=== PATIENT | female | born 1980 | race Caucasian/White ===

== ENCOUNTER 2018-02-01 08:03 | Emergency (ER) | payer OTHER ==
--- OUTSIDE RECORDS SUMMARY | 2018-02-01 08:07 | XMS REPORT ---
:1980 External Reference #:[id number] Author Organization [employer] Address [address] [place] [address] [place] [address] Phone [phone] Care Team Providers Name Role Phone Sara Mcdermott MD Primary Care Physician Unavailable Payers Type Date Identification Numbers Payment Provider Subscriber Commercial Policy Number: [id number] [employer] Brook Cortes PayID: [id number] [address] [place] [address] Problems Description No Information Family History Date Family Member(s) Problem(s) Comments General Sleep Apnea Maternal side Father Asthma Father Smoker Mother Snoring Mother Breast Cancer Mother Smoker Siblings 2 1 brother and 1 sister, brother has mild asthma Social History Type Date Description Comments Marital Status Significant Other Lives With Spouse Occupation [employer] Cigarette Use Never Smoked Cigarettes exposed to second hand as a child ETOH Use Rarely consumes alcohol Smoking Patient has never smoked Recreational Drug Use Denies Drug Use Daily Caffeine Consumes on average 1 cup of espresso a few times per regular coffee per day week Daily Caffeine Consumes on average 1 cup of hot tea per day Daily Caffeine Consumes on average 12oz of 1-2 per week soda per day Exercise Type/Frequency Exercises rarely Allergies, Adverse Reactions, Alerts Date Description Reaction Status Severity Comments 01/04/2018 NKDA active Medications Medication Date Status Form Strength Qnty SIG Indications Ordering Provider Nicole 0 Active Tablets 3-0.02mg 1 by mouth Unknown 000 every day Lexapro 0 Active Tablets 10mg 1 by mouth Unknown 000 every day Xyzal Allergy 0 Active Tablets 5mg 1 by mouth Unknown 24HR 000 every day Flonase Active Suspension 50mcg/Act spray 1 Unknown Allergy 000 spray in Relief each nostril prn Singulair Active Tablets 10mg 1 by mouth Unknown 000 every day Xanax 0 Active Tablets as needed Unknown 000 for anxiety Levsin 0 Active Tablets as needed Unknown 000 for IBS Lomotil Active Tablets prn for Unknown 000 IBS Vital Signs Date Vital Result Comment 01/04/2018 Height 66 inches 5'6" Weight 190.00 lb Heart Rate 68 /min BP Systolic Sitting 122 mmHg BP Diastolic Sitting 82 mmHg Respiratory Rate 14 /min O2 % BldC Oximetry 99 % BMI (Body Mass Index) 30.7 kg/m2 Neck Circumference in inches 14.75 Results Description No Information Procedures Description No Information Encounters Type Date Location Provider CPT E/M Dx Office Visit 01/04/2018 [facility] [address] R06.83 8:[facility] R53.83 J45.909 Plan of Care 01/04/2018 - Saida Stern, MDR06.83 SnoringNew Orders:Home Sleep TestingFollow up:[id number] Other [id number] Unspecified asthma, uncomplicated
[2018-02-01 08:12] VITALS: BP 122/80
--- NOTE | 2018-02-01 09:19 | UC ---
Respiratory Complaint HPI - HPI Summary HPI Summary: ONSET OF SORE THROAT AND PAIN WITH SWALLOWING LAST NIGHT. ALSO REPORTS SOME DRAINAGE, CONGESTION AND MILD COUGH. NO FEVER, NAUSEA/VOMITING. FLEW BACK FROM [place] OVER THE WEEKEND AND WONDERS IF SHE PICKED SOMETHING UP ON THE PLANE. - History of Current Complaint Chief Complaint: UCRespiratory Stated Complaint: SORE THROAT Time Seen by Provider: 02/01/18 09:07 Hx Obtained From: Patient Onset/Duration: Gradual Onset, Lasting Hours, Still Present Timing: Constant Severity Initially: Moderate Severity Currently: Moderate Pain Intensity: 8 Pain Scale Used: 0-10 Numeric Character: Cough: Nonproductive Aggravating Factors: Nothing Alleviating Factors: Nothing Associated Signs And Symptoms: Positive: URI, Nasal Congestion. Negative: Dyspnea, Fever, Wheezing - Allergies/Home Medications Allergies/Adverse Reactions: Allergies Allergy/AdvReac Type Severity Reaction Status Date / Time No Known Allergies Allergy Verified 02/01/18 08:12 Home Medications: Home Medications Albuterol HFA INHALER* [Ventolin HFA Inhaler*] 1 puff INH Q4H PRN 02/01/18 [ History Confirmed 02/01/18] Diphenoxylat/Atrop 2.5-0.025M* [Lomotil TAB*] 1 tab PO QID 02/01/18 [History Confirmed 02/01/18] Escitalopram Oxalate [Lexapro 10 mg] 10 mg PO DAILY 02/01/18 [History Confirmed 02/01/18] Ethinyl Estradiol/Drospirenone [Nicole 28 Tablet] 1 each PO 02/01/18 [History] Fluticasone NASAL SPRAY 50MCG* [Flonase NASAL SPRAY 50MCG*] 2 spray BOTH NARES DAILY 02/01/18 [History Confirmed 02/01/18] Hyoscyamine Sulfate [Levsin] 0.125 mg PO 02/01/18 [History] LevoCETirizine TAB (NF) [Xyzal TAB (NF)] 5 mg PO DAILY 02/01/18 [History Confirmed 02/01/18] Montelukast Sodium TAB* [Singulair 10 MG TAB*] 10 mg PO DAILY 02/01/18 [History Confirmed 02/01/18] PMH/Surg Hx/FS Hx/Imm Hx - Additional Past Medical History Additional PMH: ALLERGIES Other Cancer History: BASAL CELL - NOSE - Surgical History Surgical History: None - Family History Known Family History: Negative: Hypertension - Social History Alcohol Use: Occasionally Substance Use Type: None Smoking Status (MU): Never Smoked Tobacco Review of Systems Constitutional: Negative ENT: Sore Throat, Nasal Discharge Respiratory: Cough Cardiovascular: Negative Gastrointestinal: Negative All Other Systems Reviewed And Are Negative: Yes Physical Exam Triage Information Reviewed: Yes Appearance: Well-Appearing, No Pain Distress, Well-Nourished Vital Signs: Initial Vital Signs Temp 97.5 F 02/01/18 08:07 Pulse 92 02/01/18 08:07 Resp 18 02/01/18 08:07 BP 122/80 02/01/18 08:07 Pulse Ox 99 02/01/18 08:07 Laboratory Tests 02/01/18 08:18 Group A Strep Rapid Negative Vital Signs Reviewed: Yes Eyes: Positive: Conjunctiva Clear ENT: Positive: Hearing grossly normal, Pharyngeal erythema, TMs normal. Negative: Tonsillar swelling, Tonsillar exudate Neck: Positive: Supple, Nontender, No Lymphadenopathy Respiratory Exam: Normal Cardiovascular Exam: Normal Abdomen Description: Positive: Soft Musculoskeletal: Positive: No Edema Neurological: Positive: Alert Psychological: Positive: Age Appropriate Behavior Skin: Negative: rashes UC Diagnostic Evaluation - Laboratory O2 Sat by Pulse Oximetry: 99 Respiratory Course/Dx - Differential Dx/Diagnosis Provider Diagnoses: ACUTE URI Discharge - Sign-Out/Discharge Documenting (check all that apply): Patient Departure All imaging exams completed and their final reports reviewed: No Studies - Discharge Plan Condition: Stable Disposition: HOME Patient Education Materials: Upper Respiratory Infection (ED) Referrals: Sara Mcdermott MD [Primary Care Provider] - If Needed Additional Instructions: STREP TEST NEGATIVE. YOUR SYMPTOMS ARE LIKELY VIRALLY MEDIATED AND SHOULD RESOLVE ON THEIR OWN WITH TIME. NO INDICATION FOR ANTIBIOTICS AT PRESENT. REST, HYDRATE, OTC MEDS NEEDED. SEEK FOLLOW-UP IF YOU ARE NOT IMPROVING OVER THE NEXT 1-2 WEEKS. - Billing Disposition and Condition Condition: STABLE Disposition: Home
== END 2018-02-01 09:21 | disposition home or self-care (01) ==
LOC: UCEAST 08:03
DX: J06.9 Acute upper respiratory infection, unspecified (principal)
CPT/HCPCS: 87651; 99211; G0463